=== PATIENT | male | born 1990 | race Hispanic/Latino ===

== ENCOUNTER 2024-09-04 22:03 | Emergency (ER) | payer SELFPAY ==
[~2024-09-04] VITALS: Ht 180.3 cm; Wt 154.2 kg
[2024-09-04 22:10] VITALS: PULSE 79; RESP 17; TEMP 98.3; O2SAT 100
[2024-09-04] MEDS ORDERED: NEURONTIN100 MG PO (22:44)
== END 2024-09-04 23:16 | disposition home or self-care (01) ==
LOC: ER 22:44
DX: M54.42 Lumbago with sciatica, left side (principal)
CPT/HCPCS: 99282

== ENCOUNTER 2024-10-12 14:06 | Emergency (ER) | payer SELFPAY ==
[~2024-10-12] VITALS: Ht 177.8 cm; Wt 131.5 kg
[~2024-10-12 14:06] MED LIST: NEURONTIN100 MG PO
[2024-10-12 15:00] VITALS: PULSE 64; RESP 18; TEMP 98.9
[2024-10-12] MEDS ORDERED: TRAMADOL HCL 50 MG TAB PO ONE (15:15)
[2024-10-12] MEDS ORDERED: KETOROLAC TROMETHAMINE 60 MG/2 ML VIAL IM ONE (15:15)
[2024-10-12] MEDS ORDERED: CYCLOBENZAPRINE HCL 10 MG TAB PO ONE (15:15)
[2024-10-12] MEDS ORDERED: METHOCARBAMOL750 MG PO (16:34)
[2024-10-12] MEDS ORDERED: KETOROLAC TROME10 MG PO (16:34)
[2024-10-12] MEDS ORDERED: ULTRAM 50MG50 MG PO (16:34)
[2024-10-12 16:54] VITALS: BP 140/79; PULSE 65; RESP 18; TEMP 98; O2SAT 99
== END 2024-10-12 16:56 | disposition home or self-care (01) ==
LOC: FSED 15:12
DX: M54.42 Lumbago with sciatica, left side (principal)
CPT/HCPCS: 72100; 99283